=== PATIENT | female | born 1990 | race African-American/Black ===

== ENCOUNTER 2017-06-21 17:18 | Emergency (ER) | payer MEDICAID, OTHER ==
[~2017-06-21] VITALS: Ht 170.2 cm; Wt 83.0 kg
[~2017-06-21 17:18] MED LIST: PROM25SU8 PO
[2017-06-21 17:20] VITALS: BP 184/104; PULSE 100; RESP 20; TEMP 99.4; O2SAT 99
--- NOTE | 2017-06-21 17:49 | PD ---
HPI Chief Complaint: Cold / Flu Symptoms Time Seen by Provider: 17:46 Travel History International Travel<30 days: No Contact w/Intl Traveler<30days: No Traveled to known affect area: No History of Present Illness HPI 27-year-old female with chief complaint of sore throat, cough, nasal congestion 2 days. Patient denies fever or chills. Symptoms severity is mild. No aggravating or alleviating factors. PFSH Past Medical History Medical History: Denies Significant Hx Diminished Hearing: No Tetanus Vaccination: Unknown ?: Not LMP: 06/04/17 : 1 Para: 0 Past Surgical History Section: Yes Social History Alcohol Use: No Tobacco Use: Yes (COUPLE A DAY) Substance Use: No Allergies-Medications (Allergen,Severity, Reaction): Coded Allergies: No Known Allergies (Verified , 06/21/17) Reported Meds & Prescriptions Reported Meds & Active Scripts Active No Active Prescriptions or Reported Medications Review of Systems Except as stated in HPI: all other systems reviewed are Neg General / Constitutional: No: Fever Eyes: No: Visual changes HENT: No: Headaches Physical Exam Narrative GENERAL: Well-nourished, well-developed patient. SKIN: Focused skin assessment warm/dry. HEAD: Normocephalic. EYES: No scleral icterus. No injection or drainage. THROAT: Posterior oropharyngeal erythema mild tonsillar swelling without exudate. NECK: Supple, trachea midline. No JVD or lymphadenopathy. CARDIOVASCULAR: Regular rate and rhythm without murmurs, gallops, or rubs. RESPIRATORY: Breath sounds equal bilaterally. No accessory muscle use. GASTROINTESTINAL: Abdomen soft, non-tender, nondistended. MUSCULOSKELETAL: No cyanosis, or edema. BACK: Nontender without obvious deformity. No CVA tenderness. Data Data Last Documented VS Vital Signs Date Time Temp Pulse Resp B/P Pulse Ox O2 Delivery O2 Flow Rate FiO2 06/21/17 17:20 99.4 100 20 184/104 99 Room Air MDM Medical Decision Making Medical Screen Exam Complete: Yes Emergency Medical Condition: Yes Differential Diagnosis URI, strep pharyngitis, bronchitis, Narrative Course 27-year-old female with URI like symptoms 2 days. Symptoms severity is mild. Patient physical exam is reassuring. She was instructed regarding symptomatically treatment for URI. Patient verbalizes understanding this plan. Diagnosis Primary Impression: URI (upper respiratory infection) Qualified Code: J06.9 - Upper respiratory tract infection, unspecified type Referrals: [facility] Departure Forms: Tests/Procedures, Work Release Enter return to work date: Jun 23, 2017 Additional Instructions: Take [id number] Motrin [id number] milligrams every 6-8 hours as needed for pain. Stay well hydrated by drinking plenty of fluids. Scripts No Active Prescriptions or Reported Meds Disposition: 01 DISCHARGE HOME Condition: Stable Hetaher Florez Jun 21, 2017 17:49
== END 2017-06-21 17:59 | disposition home or self-care (01) ==
LOC: NEPD 17:18
DX: J06.9 Acute upper respiratory infection, unspecified (principal); Z72.0 Tobacco use
CPT/HCPCS: 99282